=== PATIENT | male | born 1975 | race Caucasian/White ===

== ENCOUNTER 2019-07-07 05:26 | Emergency (ER) | payer OTHER, SELFPAY ==
--- NOTE | ~2019-07-07 | CT_ITS ---
EXAMINATION: CT abdomen pelvis wo con DATE: 07/07/2019 06:50 INDICATION: Left flank pain. Nausea and vomiting. TECHNIQUE: Computed tomography (CT) of the abdomen and pelvis was performed without intravenous contr ast. Automated exposure control and iterative reconstruction technique were employed. The dose-length product was 1684.29 mGy-cm. COMPARISON: None. FINDINGS: The visualized portions of the lung bases demonstrate a calcified right lower lobe nodule a nd calcified right hilar lymph nodes, consistent with old granulomatous disease. No pleural effusion. The heart size is normal. No pericardial effusion. There is diffuse hepatic steatosis. The gallbladd er, spleen, pancreas, adrenal glands, and right kidney are normal. There is mild left hydronephrosis and hydroureter. There is a 1 mm stone at left ureterovesicular junction. There is asymmetric edema i n left perinephric space. There is a small left inguinal hernia containing fat. There is diverticulos is of the colon without evidence of diverticulitis. There are no dilated loops of bowel. The appendix is normal. There are no pathologically enlarged lymph nodes. There is no free intraperitoneal fluid. There is mild thoracolumbar spondylosis. IMPRESSION: 1. 1 mm stone at left ureterovesicular junction with mild left hydronephrosis and hydroureter. Reviewed, dictated and finalized at location A. [facility]
[2019-07-07 05:29] VITALS: BP 169/101; PULSE 98; RESP 22; TEMP 36.4; O2SAT 100
--- NOTE | 2019-07-07 06:19 | ED.GENADULT ---
HPI - General Adult General Chief complaint: Abdominal Pain Stated complaint: L BACK PAIN Time Seen by Provider: 07/07/19 06:12 History of Present Illness HPI narrative: Patient is a 44 y/o male complaining left mid-back pain starting approximately 4 hours ago. He describes the pain as a pressure sensation and rates it as 7/10. He states that laying down worsens with pain. He endorses nausea, vomiting, dysuria and urgency. He denies any hematuria. He has never had similar pain before. Related Data Home Medications Medication Instructions Recorded Confirmed fexofenadine 180 mg tablet 180 mg PO .COMPLEX 07/03/19 multivitamin 1 tablet PO .COMPLEX 07/03/19 omeprazole 20 mg capsule,delayed 20 mg PO BID 07/03/19 release ranitidine HCl 150 mg tablet 150 mg PO BID tablet 07/03/19 Allergies Allergy/AdvReac Type Severity Reaction Status Date / Time No Known Allergies Allergy Unverified 07/20/11 13:40 Review of Systems Constitutional: Constitutional: Reports as per HPI, Denies chills, Denies fever(s), Denies headache(s) and Denies weakness Eyes: Eyes: Denies blurry vision ENT: Denies headache(s) and Denies neck pain Cardiovascular: Cardiovascular: Denies chest pain and Denies dyspnea Respiratory: Respiratory: Denies cough and Denies dyspnea Gastrointestinal: Gastrointestinal: Denies abdominal pain, Denies diarrhea, Reports nausea and Reports vomiting Genitourinary: Genitourinary: Denies hematuria and Reports dysuria Musculoskeletal: Musculoskeletal: Reports back pain and Denies neck pain Neurologic: Denies headache(s) and Denies weakness [facility] Past Medical History Medical History Hyperglycemia Hypertension Family History Family History Mother Patient's mother is in good health Father Patient's father is in good health Social History Social History Smoking status: Former smoker Smoking end date: 05/17/97 Gender identity (if verbalized by the patient): Male Exam Const: General: no acute distress and well developed Orientation/consciousness: oriented to person, oriented to place, oriented to time and patient oriented x3 HENMT: Head: normocephalic Ears: external ears normal General nose exam: Normal external nose present Eyes: General: appearance normal, both eyes and all related structures Conjunctivae: conjunctivae normal Neck: Neck: normal visual inspection and full ROM Chest: Chest palpation & inspection: normal inspection of the chest and no tenderness Resp: Effort & Inspection: normal respiratory effort Auscultation: clear to auscultation bilaterally Cardio: Rate: regular rate Rhythm: regular rhythm GI: GI Palp: No abdominal tenderness and Yes Soft to palpation Skin: General skin exam: normal color and turgor normal Neuro: General: oriented to person, oriented to place, oriented to time and patient oriented x3 Cognition (Neuro): normal cognition Extrem: General: normal to inspection, full ROM and no pedal edema Psych: Appearance: grossly normal Mental Status: mental status grossly normal Affect: normal affect Course Consultations Consultation #1: Discussed with Dr. Holly while he is in ED. He will evaluate the patient and recommends discharge. Date: 07/07/19 Time: 08:00 Vital Signs Vital signs: Vital Signs Temperature 36.4 C L 07/07/19 05:29 Pulse Rate 98 07/07/19 05:29 Respiratory Rate 22 H 07/07/19 05:29 Blood Pressure 169/101 H 07/07/19 05:29 Pulse Oximetry 100 07/07/19 05:29 Temperature 36.4 C L 07/07/19 05:29 Pulse Rate 98 07/07/19 05:29 Respiratory Rate 22 H 07/07/19 05:29 Blood Pressure 169/101 H 07/07/19 05:29 Pulse Oximetry 100 07/07/19 05:29 Medical Decision Making Vital Signs Vital Signs: Vital Signs Temperature 36.4 C L 07/07/19 05:29 Pulse Rate
[2019-07-07] MEDS: ONDANSETRON INJ 4 MG/2 ML VIAL IV PUSH (06:32)
[2019-07-07] MEDS: SODIUM CHLORIDE 0.9% IV 1,000 ML 999 ML IV CONT (06:32)
[2019-07-07] MEDS: KETOROLAC 30 MG/ML VIAL (*BKC) IV PUSH (06:33)
[2019-07-07 06:41] LABS: Basophils Percent Auto 0.4 % (0.2-1.2); Eosinophils Percent Auto 0.2 % (0-4.4); Hematocrit 44.8 % (42.0-52.0); Hemoglobin 15.6 g/dL (14.0-18.0); Immature Granulocyte Absolute 0.02 K/mm3 (0.00-0.031); Immature Granulocyte Percent A 0.2 % (0-0.5); Lymphocytes Absolute Auto 1.46 K/mm3 (0.9-3.2); Lymphocytes Percent Auto 14.4 % (18.3-44.2); Mean Corpuscular HGB Conc 34.8 g/dl (32-36); Mean Corpuscular Hemoglobin 30.8 pg (26-34); Mean Corpuscular Volume 88.4 fl (80-100); Mean Platelet Volume 11.8 fl (7.4-10.4); Monocytes Absolute Auto 0.5 K/mm3 (0.1-0.6); Monocytes Percent Auto 5.1 % (2.6-8.5); Neutrophils Absolute Auto 8.1 K/mm3 (1.3-6.7); Neutrophils Percent Auto 79.7 % (45.5-73.1); Platelet Count Result 207 k/mm3 (150-375); Red Blood Count 5.07 M/mm3 (4.6-6.20); Red Cell Distribution Width 11.8 % (11.5-14.5); White Blood Count 10.1 K/mm3 (4.5-10.0)
[2019-07-07 08:07] LABS: Add Urine Microscopic? NO; Appearance Urine Clear (Clear); Bilirubin Urine Negative (Negative); Blood Urine Negative (Negative); Color Urine Yellow (Yellow); Glucose Urine UA Negative (Negative); Ketones Urine Negative (Negative); Leukocyte Esterase Ur Negative LEU/UL (Negative); Mucus Urine Few /lpf; Nitrate Urine Negative (Negative); Protein Urine Negative (Negative); RBC Urine 0-2 /hpf (0-2); Squamous Epithelial Cell Urine Few /hpf (Few); Urobilinogen Urine Negative mg/dL (<2.0); WBC Urine 0-3 /hpf
--- NOTE | 2019-07-07 08:15 | WPDURCON ---
Assessment and Plan Assessment and plan (1) Calculus of distal left ureter: Code(s): N20.1 - Calculus of ureter Status: Acute Assessment and Plan: 1mm left distal stone - pian improved - pt to be discharged home with Flomax, pain medication, urinary strainer - follow up in one month with renal US to ensure passage % resolution of hydronephrosis Urology Consult Note HPI Date Seen: 07/07/19 Primary Care Provider: Nba Vizcarra MD Consult Narrative Narrative: Tanvir Colon is a 44 year old male with left flank pain. denies fever, chills, nausea or vomiting Review of Systems Review of Systems: All systems reviewed & are unremarkable except as noted in HPI and below PMFSH Past Medical History Medical History (Updated 07/07/19 @ 08:16 by Remedios Sandoval MD) Hyperglycemia Hypertension Family History Family History (Updated 06/29/17 @ 10:33 by DOCTOR UNKNOWN) Mother Patient's mother is in good health Father Patient's father is in good health Social History Social History Smoking status: Former smoker Smoking end date: 05/17/97 Gender identity (if verbalized by the patient): Male Meds Home Medications and Allergies Home Medications Medication Instructions Recorded Confirmed Type montelukast 10 mg tablet 10 mg PO .Evening #90 tablet 03/21/19 Rx fexofenadine 180 mg tablet 180 mg PO .COMPLEX 07/03/19 History lisinopril 10 mg tablet See Rx Instructions .ROUTE 07/03/19 Rx .COMPLEX #90 tablet multivitamin 1 tablet PO .COMPLEX 07/03/19 History omeprazole 20 mg capsule,delayed 20 mg PO BID 07/03/19 History release ranitidine HCl 150 mg tablet 150 mg PO BID tablet 07/03/19 History hydrocodone-acetaminophen [[place]] 1 tablet PO Q6H PRN #20 tablet 07/07/19 Rx tamsulosin [Flomax] 0.4 mg PO DAILY #10 cap 07/07/19 Rx Allergies Allergy/AdvReac Type Severity Reaction Status Date / Time No Known Allergies Allergy Unverified 07/20/11 13:40 Vital Signs Vital Signs - 24 hr 07/07/19 05:29 Temperature 36.4 C L Pulse Rate 98 Respiratory Rate 22 H Blood Pressure 169/101 H Pulse Oximetry 100 Exam Const: General: comfortable Eyes: General: appearance normal, both eyes and all related structures Resp: Effort & Inspection: normal respiratory effort Cardio: Rate: regular rate GI: Other: soft Results Labs CBC & Chem 7: 07/07/19 06:35 07/07/19 06:35 Labs: Short CBC 07/07/19 Range/Units 06:35 WBC 10.1 H (4.5-10.0) K/mm3 Hgb 15.6 (14.0-18.0) g/dL Hct 44.8 (42.0-52.0) % Plt Count 207 (150-375) k/mm3 Urine 07/07/19 Range/Units 07:53 Urine Color Yellow (Yellow) Urine Appearance Clear (Clear) Urine pH 5.0 (5.0-9.0) Ur Specific [place] 1.030 (1.001-1.035) Urine Protein Negative (Negative) mg/dL Urine Glucose (UA) Negative (Negative) mg/dL
[2019-07-07 08:16] LABS: Blood Urea Nitrogen 17 mg/dL (9-20); Calcium 9.5 mg/dL (8.4-10.2); Carbon Dioxide 27 mmol/L (22-30); Chloride 100 mmol/L (98-107); Estimated CRCL calculation 102 ml/min; Estimated Glomerular Filt Rate > 60; Glucose 120 mg/dL (75-110); Sodium 138 mmol/L (137-145)
[2019-07-07 08:50] VITALS: BP 150/90; PULSE 92; RESP 19; O2SAT 97
--- NOTE | 2019-07-14 20:03 | PC.NURSE ---
LATE ENTRY Patient's liter of NS finished infusing at 0715 on 07/07/2019.
== END 2019-07-07 08:52 | disposition home or self-care (01) ==
PROVIDERS: Emergency Provider Emergency Medicine; PCP Emergency Medicine
DX: N13.2 Hydronephrosis with renal and ureteral calculous obstruction (principal); I10 Essential (primary) hypertension; Z87.891 Personal history of nicotine dependence
CPT/HCPCS: 36415; 74176; 80048; 81003; 85025; 96361; 96374; 96375; 99284; J1885; J2405; J7030

== ENCOUNTER 2022-08-20 13:42 | Emergency (ER) | payer OTHER, SELFPAY ==
[2022-08-20 14:02] VITALS: BP 144/85; PULSE 103; RESP 22; TEMP 36.6; O2SAT 100
--- NOTE | 2022-08-20 14:19 | ED.URI ---
HPI - URI/Sore Throat General Chief Complaint: Upper Respiratory Infection Stated Complaint: sorethroat,cough,congestion Time Seen by Provider: 08/20/22 14:19 Source: patient Mode of arrival: ambulatory Limitations: no limitations History of Present Illness HPI Narrative: Patient is a 47-year-old male that presents with 3 weeks of cough and sore throat. Reports son was diagnosed with strep 10 days ago. Patient reports cough is worse at night. Has tried Mucinex, Sudafed, Benadryl, Delsym with mild to no relief. States he was on amoxicillin but unsure when. Denies any fever, congestion, shortness of breath. Related Data Home Medications Medication Instructions Recorded Confirmed multivitamin 1 tablet PO .COMPLEX 07/03/19 08/20/22 omeprazole 20 mg capsule,delayed 20 mg PO BID 07/03/19 08/20/22 release omega-3 fatty acids 500 mg capsule 500 mg PO DAILY 11/28/19 08/20/22 Allergies Allergy/AdvReac Type Severity Reaction Status Date / Time Sulfa (Sulfonamide Allergy Unknown Unknown Verified 08/20/22 14:10 Antibiotics) Review of Systems Review of Systems: All systems reviewed & are unremarkable except as noted in HPI and below Constitutional: Constitutional: Denies body ache(s), Denies fever(s), Denies headache(s), Denies malaise and Denies weakness Eyes: Eyes: Denies loss of vision ENT: Denies otalgia, Denies headache(s), Denies nasal congestion, Denies sinus pain and Reports sore throat Cardiovascular: Cardiovascular: Denies chest pain, Denies irregular heart rhythm and Denies dyspnea Respiratory: Respiratory: Reports cough and Denies dyspnea Gastrointestinal: Gastrointestinal: Denies abdominal pain, Denies melena, Denies hematochezia, Denies diarrhea, Denies nausea and Denies vomiting Musculoskeletal: Musculoskeletal: Denies back pain, Denies myalgias and Denies arthralgias Integumentary/Breasts: Skin/Breast: Denies pruritus and Denies rash Neurologic: Denies headache(s), Denies loss of vision and Denies weakness Psychiatric: Psychiatric: Reports no additional psychiatric complaints PMFSH Past Medical History Medical History Chronic frontal sinusitis Hyperglycemia Hypertension Metabolic syndrome Mixed hyperlipidemia Vasectomy evaluation Vitamin D deficiency Family History Family History Mother Patient's mother is in good health Father Patient's father is in good health Social History Social History Smoking status: Former smoker Smoking end date: 05/17/97 Gender identity (if verbalized by the patient): Male Comments At time of signature, agree with nursing past medical, surgical, social and family history. There is no relevant family history pertinent to the presenting complaint. Exam Const: General: cooperative, healthy appearing, comfortable, no acute distress and well nourished Nutritional Appearance: well nourished Orientation/consciousness: patient oriented x3 Limitations: no limitations HENMT: Head: normal to inspection, normocephalic and atraumatic Ears: external ears normal, TM normal on the right and TM abnormal obstructed by cerumen on the left Face/Nose/Sinus: Normal external nose present, normal facial exam, sinuses nontender and face symmetric Face and sinus: normal facial exam, sinuses nontender and face symmetric Mouth: Yes Normal oral and palatal mucosa present, Yes lip normal and Yes moist mucous membranes Teeth and gingiva: dentition normal Throat: posterior oropharynx normal, tonsils normal and uvula midline Eyes: General: appearance normal, both eyes and all related structures Alignment and Position: alignment normal and position normal Periorbital: periorbital findings normal Eyelids: eyelids normal Pupils: Equal, round and reactive pupils present Neck: Neck: normal visual inspection, ful
== END 2022-08-20 14:46 | disposition home or self-care (01) ==
PROVIDERS: Emergency Provider Nurse Practitioner Family; PCP Emergency Medicine
DX: J32.9 Chronic sinusitis, unspecified (principal); J40 Bronchitis, not specified as acute or chronic; Z87.891 Personal history of nicotine dependence; I10 Essential (primary) hypertension; E78.2 Mixed hyperlipidemia; E88.81 Metabolic syndrome and other insulin resistance
CPT/HCPCS: 87081; 87880; 99213; G0463

== ENCOUNTER 2022-11-21 19:57 | Observation (INO) | payer OTHER, SELFPAY ==
--- NOTE | ~2022-11-21 | XR_ITS ---
EXAMINATION: XR chest 1V portable Exam Date/Time: 11/21/2022 21:20 CDT HISTORY: chest pain Comparison: None. RESULT: Lines, tubes, and devices: None. Lungs and pleura: Calcified left midlung hamartoma. No focal consolidation, pleural effusion, or pne umothorax. Cardiomediastinal silhouette: Unremarkable. Other: No acute osseous or upper abdominal finding. IMPRESSION: No acute cardiopulmonary process. Reviewed, dictated and finalized at location K.
--- NOTE | 2022-11-21 19:59 | ECG_ITS ---
Measurements Intervals [place] Rate: 93 P: 11 [place]: 132 QRS: 34 QRSD: 90 T: 31 QT: 346 QTc: 432 Interpretive Statements SINUS RHYTHM NORMAL ECG NO PREVIOUS ECG AVAILABLE FOR COMPARISON Electronically Signed On 11-22-2022 7:26:20 CDT by Azam Meyers D.O.
[2022-11-21 20:07] VITALS: BP 166/81; PULSE 98; RESP 18; TEMP 36.9; O2SAT 99
[2022-11-21 20:19] VITALS: BP 163/94; PULSE 93; RESP 18; O2SAT 95
[2022-11-21 20:31] VITALS: BP 174/106; PULSE 94; RESP 25
[2022-11-21 20:42] VITALS: O2SAT 96
[2022-11-21 20:46] VITALS: BP 167/90; PULSE 90; RESP 13; RESP 16; O2SAT 96
[2022-11-21] MEDS: ASPIRIN 81 MG CHEWABLE TABLET 324 MG PO (20:57)
[2022-11-21 21:02] LABS: Basophils Percent Auto 0.5 % (0.2-1.2); Eosinophils Absolute Auto 0.1 K/mm3 (0-0.3); Eosinophils Percent Auto 1.3 % (0-4.4); Hematocrit 41.8 % (42.0-52.0); Hemoglobin 14.4 g/dL (14.0-18.0); Immature Granulocyte Absolute 0.02 K/mm3 (0.00-0.031); Immature Granulocyte Percent A 0.2 % (0-0.5); Lymphocytes Absolute Auto 2.83 K/mm3 (0.9-3.2); Lymphocytes Percent Auto 33.3 % (18.3-44.2); Mean Corpuscular HGB Conc 34.4 g/dl (32-36); Mean Corpuscular Hemoglobin 30.5 pg (26-34); Mean Corpuscular Volume 88.6 fl (80-100); Mean Platelet Volume 11.5 fl (7.4-10.4); Monocytes Absolute Auto 0.7 K/mm3 (0.1-0.6); Monocytes Percent Auto 8.2 % (2.6-8.5); Neutrophils Absolute Auto 4.8 K/mm3 (1.3-6.7); Neutrophils Percent Auto 56.5 % (45.5-73.1); Platelet Count Result 236 k/mm3 (150-375); Red Blood Count 4.72 M/mm3 (4.6-6.20); Red Cell Distribution Width 12.5 % (11.5-14.5); White Blood Count 8.5 K/mm3 (4.5-10.0)
[2022-11-21 21:10] LABS: Lipase 154 U/L (23-300)
[2022-11-21 21:14] LABS: Alanine Aminotransferase 55 U/L (6-50); Albumin Level 4.4 g/dL (3.5-5.1); Alkaline Phosphatase 49 U/L (38-126); Anion Gap 8 mmol/L (8-16); Aspartate Amino Transferase 42 U/L (17-59); Bilirubin,Total 0.4 mg/dL (0.2-1.3); Blood Urea Nitrogen 18 mg/dL (9-20); Calcium 10.2 mg/dL (8.4-10.2); Carbon Dioxide 26 mmol/L (22-30); Chloride 100 mmol/L (98-107); Estimated CRCL calculation 130 ml/min; Estimated Glomerular Filt Rate > 60; Glucose 106 mg/dL (65-110); Magnesium 1.8 mg/dL (1.6-2.3); Potassium 3.7 mmol/L (3.4-5.0); Sodium 134 mmol/L (137-145)
[2022-11-21 21:16] VITALS: BP 163/87; PULSE 91; O2SAT 94
[2022-11-21 21:19] LABS: Partial Thromboplastin Time 26.6 SECONDS (22.3-36.8); Prothrombin Time 13.1 Seconds (11.1-14.7)
[2022-11-21 21:20] LABS: NT Pro B Type Natriuretic Pept < 20 pg/mL (19.9-100)
[2022-11-21 21:26] LABS: Troponin I < 0.012 ng/mL (0.000-0.034)
[2022-11-21 22:01] LABS: Appearance Urine Clear (Clear); Bilirubin Urine Negative (Negative); Blood Urine Negative (Negative); Color Urine Yellow (Yellow); Glucose Urine UA Negative (Negative); Ketones Urine Negative (Negative); Leukocyte Esterase Ur Negative LEU/UL (Negative); Nitrate Urine Negative (Negative); Protein Urine Negative (Negative); Urobilinogen Urine 0.2 mg/dL (<2.0); pH Urine 5.5 (5.0-9.0)
[2022-11-21 22:29] LABS: Add Urine Microscopic? NO
--- NOTE | 2022-11-21 23:37 | ED.GENADULT ---
HPI - General Adult General Chief complaint: Chest Pain Stated complaint: chest pain Time Seen by Provider: 11/21/22 20:21 History of Present Illness HPI narrative: Patient 47-year-old gentleman who presents the emergency department with chief complaint of chest pain and palpitations. Patient reports that yesterday he started having some episodes where he felt like his heart was racing he states that his Apple Watch did read that his heart rate was high during that time. Patient also reported he had an episode of chest discomfort when this happened patient reports no prior history of cardiac disease and reports he had another episode today and decided to come to the emergency department patient reports the symptoms are currently resolved Related Data Home Medications Medication Instructions Recorded Confirmed multivitamin 1 tablet PO BID 07/03/19 11/22/22 omeprazole 20 mg capsule,delayed 20 mg PO BID 07/03/19 11/22/22 release omega-3 fatty acids 500 mg capsule 500 mg PO QPM 11/28/19 11/22/22 fenofibrate nanocrystallized 145 145 mg PO QPM 11/22/22 11/22/22 mg tablet fluticasone propionate 50 1 spray intranasal BID PRN 11/22/22 11/22/22 mcg/actuation nasal allergies spray,suspension (Flonase Allergy Relief) lisinopril 40 mg tablet 40 mg PO DAILY 11/22/22 11/22/22 niacin 500 mg tablet,extended 500 mg PO QAM 11/22/22 11/22/22 release Allergies Allergy/AdvReac Type Severity Reaction Status Date / Time Sulfa (Sulfonamide Allergy Unknown Unknown Verified 10/19/22 17:52 Antibiotics) Review of Systems Review of Systems: A 10 system review of systems was completed on the patient and is negative except for what is stated in the HPI. Nursing and ancillary documentation was reviewed. [facility] Past Medical History Medical History Chronic frontal sinusitis Hyperglycemia Hypertension Metabolic syndrome Mixed hyperlipidemia Ureterolithiasis Vasectomy evaluation Vitamin D deficiency Family History Family History Mother Patient's mother is in good health Father Patient's father is in good health Social History Social History Smoking packs per day: 1.5 Smoking cigarettes per day: 30.0 Years smoked: 7 Smoking pack-years: 10.50 Smoking status: Former smoker Tobacco type: cigarettes Smoking end date: 05/17/97 Alcohol intake: current Substance use: never Other substance usage details: social alcohol use Lack of Transportation: No Lack of Food: Never True Current Housing: I Have Housing Concerned About Future Housing: No Difficulty Paying Gas/Electric Bills: No Difficulty Paying for Meds: No Currently Unemployed: No Education: Master's Degree or Higher Difficulty w/ Childcare or Family Care: No Gender identity (if verbalized by the patient): Male Spiritual care concerns: No Exam Narrative: GENERAL: Well-appearing, well-nourished, and in no acute distress. HEAD: Normocephalic, atraumatic. EYES: PERRLA and EOMI. ENT: Nares clear, no rhinorrhea or epistaxis. Mucous membranes moist. NECK: Supple. CHEST: Clear to auscultation. No respiratory distress. HEART: Regular rate and rhythm. No murmur heard. Normal peripheral pulses. ABDOMEN: Soft, nontender, nondistended, normal active bowel sounds. EXTREMITIES: Normal range of motion. No edema. SKIN: Warm, dry, no rash. NEURO: No focal deficits. Alert and oriented x3. PSYCH: Normal mood and affect. Course Vital Signs Vital signs: Vital Signs Temperature 36.9 C 11/21/22 20:07 Pulse Rate 98 11/21/22 20:07 Respiratory Rate 18 11/21/22 20:07 Blood Pressure 166/81 H 11/21/22 20:07 Pulse Oximetry 99 11/21/22 20:07 Oxygen Delivery Room Air 11/21/22 20:07 Temperature 36.6 C 11/22/22 02:41 Pulse Rate 106 H 07/0
[2022-11-22] VITALS (19 sets, daily range): BP systolic 108–145; BP diastolic 58–84; PULSE 74–106; RESP 15–22; TEMP 36.6–36.8; O2SAT 95–99; BMI 42.1
[2022-11-22] MEDS: NITROGLYCERIN SL 0.4 MG TABLET SUBLINGUAL (01:00)
[2022-11-22] MEDS: HEPARIN SODIUM 5,000 UNITS/ML VIAL 4000 UNITS IV PUSH (01:04)
--- NOTE | 2022-11-22 01:04 | ECG_ITS ---
Measurements Intervals [place] Rate: 75 P: 48 [place]: 156 QRS: 29 QRSD: 94 T: 30 QT: 390 QTc: 436 Interpretive Statements SINUS RHYTHM NORMAL ECG COMPARED TO ECG 11/21/2022 20:03:05 NO SIGNIFICANT CHANGES Electronically Signed On 11-22-2022 7:33:59 CDT by Azam Meyers D.O.
[2022-11-22] MEDS: HEPARIN SOD/D5W 100 UNITS/ML 25,000 UNITS/250 ML BAG 10 UNITS IV CONT (01:06)
[2022-11-22] MEDS: METOPROLOL TARTRATE INJ 5 MG/5 ML VIAL IV PUSH (01:10)
--- NOTE | 2022-11-22 02:34 | ADMGEN ---
This patient, Tanvir Colon, was admitted to IMU Room 212-01. Patient/family oriented to hospital policies and general routines including ID bracelet, bed and alarms, visiting hours, pain management, procedures, bathroom and other care routines, personal items, smoking policy, room service/diet, and visiting hours. Information on how to activate the Rapid Response Team has been discussed. Patient/Family are encouraged to report perceived risks to care and to ask questions if they do not understand what they are told or what they should do.
--- NOTE | 2022-11-22 02:39 | PM.IMHP ---
H&P: HPI History of Present Illness Date/Time: 11/22/22 02:39 Chief Complaint: Chest pain Narrative: 47-year-old male with past medical history of triglyceride, essential hypertension, GERD and morbid obesity who presented to the ER with chest pain. He reports that he was at a concert on Wednesday night he just did not feel well for most the day. He states that he was not acutely sick he just did not feel right. At around 09:30 or 10:00 o'clock that night he started to have some chest pressure. His heart rate on his Apple watch alarmed at 140 beats per minute. He could feel his heart racing and he was having some sweating. He did an EKG with his Apple watch but on my review of the data hip looked mostly like artifact. He went and sat down in a cool area and his symptoms resolved after 15-20 minutes. He denied any nausea or vomiting lightheadedness, cough, congestion or any preceding symptoms. He denied having history of leg swelling or calf pain. Then the following day he was driving when he began having some chest pressure. He did have some elevation is heart rate up to the low 100s. He did another EKG on his Apple watch in demonstrated sinus tachycardia on my review. He decided come into the ER for evaluation. He reports that he was still having some chest pressure even when he arrived to the ER. His chest pressure was relieved with nitroglycerin. In the ER his initial troponin was negative. His repeat troponin was reportedly positive at 0.58. After his 2nd troponin came back he was admitted for a non STEMI. He was started on nitro paste and given full-dose aspirin. Cardiology was consulted. However the patient's 3rd troponin was negative. Subsequently the will computer laboratory technician re ran all 3 of the patient's specimens on both analyzer is. All the specimens returned as negative. The patient's pain did not radiate and had no specific eliciting or relieving factors. Patient does have history of GERD and takes omeprazole. The pain did not feel like his usual GERD. He does have a history of dyslipidemia and hypertriglyceridemia. He was on Zocor in the past Review of Systems Review of Systems: 12 systems were reviewed with pertinent positives and negatives per HPI. Except as documented in the HPI, all other systems were reviewed and are negative. [facility] Past Medical History Medical History (Updated 11/22/22 @ 03:01 by Heavenly German DO) Chronic frontal sinusitis Hyperglycemia Hypertension Metabolic syndrome Mixed hyperlipidemia Ureterolithiasis Vasectomy evaluation Vitamin D deficiency Surgical History Surgical History (Updated 11/22/22 @ 07:32 by Heavenly German DO) No history of previous surgery Family History Family History Mother Patient's mother is in good health Father Patient's father is in good health Social History Social History (Updated 11/22/22 @ 07:38 by Heavelny German DO) Social History: Code status: Full code Surrogate decision maker: Smoking packs per day: 1.5 Smoking cigarettes per day: 30.0 Years smoked: 7 Smoking pack-years: 10.50 Smoking status: Former smoker Tobacco type: cigarettes Smoking end date: 05/17/97 Alcohol intake: current Alcohol use details: He drinks alcohol about once a month and in moderation. Substance use: never Other substance usage details: social alcohol use Lack of Transportation: No Lack of Food: Never True Current Housing: I Have Housing Concerned About Future Housing: No Difficulty Paying Gas/Electric Bills: No Difficulty Paying for Meds: No Currently Unemployed: No Education: Master's Degree or Higher Difficulty w/ Childcare or Family Care: No Additional living arrangements comments: He lives at home with his of 7 years and his 10-year-old son. 2 foster sons that they have had for the last 18 months. He also has 2 stepdaughters that her in
[2022-11-22 03:44] LABS: Troponin I < 0.012 ng/mL (0.000-0.034)
[2022-11-22 06:37] LABS: Basophils Percent Auto 0.4 % (0.2-1.2); Eosinophils Absolute Auto 0.2 K/mm3 (0-0.3); Eosinophils Percent Auto 2.4 % (0-4.4); Hemoglobin 13.8 g/dL (14.0-18.0); Immature Granulocyte Absolute 0.02 K/mm3 (0.00-0.031); Immature Granulocyte Percent A 0.3 % (0-0.5); Lymphocytes Percent Auto 42.6 % (18.3-44.2); Mean Corpuscular HGB Conc 33.7 g/dl (32-36); Mean Corpuscular Hemoglobin 30.4 pg (26-34); Mean Corpuscular Volume 90.3 fl (80-100); Mean Platelet Volume 11.4 fl (7.4-10.4); Monocytes Absolute Auto 0.6 K/mm3 (0.1-0.6); Neutrophils Absolute Auto 3.1 K/mm3 (1.3-6.7); Neutrophils Percent Auto 45.3 % (45.5-73.1); Platelet Count Result 210 k/mm3 (150-375); Red Blood Count 4.54 M/mm3 (4.6-6.20); Red Cell Distribution Width 12.8 % (11.5-14.5); White Blood Count 6.8 K/mm3 (4.5-10.0)
[2022-11-22 06:48] LABS: Prothrombin Time 13.3 Seconds (11.1-14.7)
[2022-11-22 06:49] LABS: Partial Thromboplastin Time 35.9 SECONDS (22.3-36.8)
[2022-11-22 06:55] LABS: Troponin I < 0.012 ng/mL (0.000-0.034)
[2022-11-22 07:30] LABS: Troponin I 0.017 ng/mL (0.000-0.034)
--- NOTE | 2022-11-22 07:42 | PC.NURSE ---
0312-6 hour troponin reported as negative with previous 3 hour troponin positive, reported at 0.539. Dr German made aware of troponin discrepancy. 0320-Dr. German at bedside to speak to the patient. A 4th troponin was ordered for the AM. Lab notified of troponin discrepancies and asked to rerun all three previous specimens of blood. After rerunning all three previous specimens, lab states that all three came back as negative results. Lab states that they will rerun all 3 specimens again on the other lab analyzer to be certain the results are correct and notify us of the results. 0640-Lab called stating that the other analyzer also reported all three specimens as negative results. electromechanical assembly technician states that she will issue a corrected report from the previous troponin results. Dr. German made aware of updated lab results. Awaiting 4th troponin results.
--- NOTE | 2022-11-22 08:13 | PM.IMPN ---
Progress Note: A&P Assessment and Plan (1) Atypical chest pain: Code(s): R07.89 - Other chest pain Status: Acute (2) Palpitations: Code(s): R00.2 - Palpitations Status: Acute (3) Mixed hyperlipidemia: Code(s): E78.2 - Mixed hyperlipidemia Status: Acute (4) Hypertension: Qualifiers: Hypertension type: primary hypertension Qualified Code(s): I10 - Essential (primary) hypertension Code(s): I10 - Essential (primary) hypertension Status: Acute (5) Morbid obesity with BMI of 40.0-44.9, adult: Code(s): E66.01 - Morbid (severe) obesity due to excess calories; Z68.41 - Body mass index [BMI] 40.0-44.9, adult Status: Acute Plan Chest pain Need to rule out ACS Troponins negative ECG shows sinus rhythm nonspecific T-wave changes Heparin drip and nitro paste was discontinued per 19 Telemetry monitoring Follow-up serial troponin Consult manager cardiac cath for radiation treatment Hyperlipidemia History of rhabdomyolysis due to Zocor Four lipid panel Continue fenofibrate and niacin Hypertension Uncontrolled hypertension new continue metoprolol 25 mg daily p.o., lisinopril and hydrochlorothiazide p.o. Of this med medication for better blood pressure control Morbid obesity Have staff change, ice or sinus Need outpatient sleep study Subjective Date/time seen: 11/22/22 08:13 Interval history: Patient feels better, denies chest pain shortness of breath. Troponin negative, EKG shows sinus rhythm no specific ST-T changes Exam Narrative: GENERAL: Pleasant, in no acute distress. Well-nourished. Obesity - EYES: EOMI. Anicteric. - HENT: Moist mucous membranes. - LUNGS: Clear to auscultation bilaterally, no wheezing, rhonchi, or rales. - CARDIOVASCULAR: Regular rate and rhythm. No murmur. No JVD. - ABDOMEN: Soft, non-tender and non-distended. No palpable masses. - EXTREMITIES: No edema. Peripheral pulses 2+. Non-tender. - NEUROLOGIC: No focal neurological deficits. CN II-XII grossly intact. - PSYCHIATRIC: Awake, Alert and oriented x 3. Appropriate mood and affect. - SKIN: No rashes or lesions. Warm. - LYMPH: No cervical lymphadenopathy. Objective Data Vital Signs Vital Signs: Vital Signs - 24 hr 11/21/22 20:07 11/21/22 20:42 11/21/22 20:46 Temperature 98.4 F Pulse Rate 98 90 Respiratory Rate 18 16 Blood Pressure 166/81 H 167/90 H Pulse Oximetry 99 96 96 Oxygen Delivery Room Air Room Air 11/21/22 20:19 11/21/22 20:31 11/21/22 20:46 Temperature Pulse Rate 93 94 90 Respiratory Rate 18 25 H 13 Blood Pressure 163/94 H 174/106 H 167/90 H Pulse Oximetry 95 Oxygen Delivery 11/21/22 21:16 11/22/22 01:00 11/22/22 01:10 Temperature Pulse Rate 91 78 93 Respiratory Rate 22 H Blood Pressure 163/87 H 145/74 H Pulse Oximetry 94 97 Oxygen Delivery 11/22/22 01:34 11/22/22 00:59 11/22/22 01:00 Temperature Pulse Rate 83 80 83 Respiratory Rate 22 H Blood Pressure Pulse Oximetry Oxygen Delivery 11/22/22 01:01 11/22/22 01:15 11/22/22 01:16 Temperature Pulse Rate 80 78 80 Respiratory Rate 22 H 15 16 Blood Pressure 145/74 H 131/74 Pulse Oximetry Oxygen Delivery 11/22/22 01:32 11/22/22 01:45 11/22/22 01:46 Temperature Pulse Rate 77 74 76 Respiratory Rate 17 19 21 H Blood Pressure 128/76 Pulse Oximetry Oxygen Delivery 11/22/22 02:41 11/22/22 02:45 11/22/22 03:14 Temperature 97.8 F Pulse Rate 82 82 106 H Respiratory Rate 22 H 22 H Blood Pressure 135/84 Pulse Oximetry 99 99 Oxygen Delivery Room Air 11/22/22 04:00 11/22/22 04:00 11/22/22 06:00 Temperature Pulse Rate 87 87 75 Respiratory Rate 20 Blood Pressure Pulse Oximetry 99 Oxygen Delivery Room Air Intake/Output Intake/Output: Intake & Output 11/19/22 11/20/22 11/21/22 11/22/22 23:59 23:59 23:59 23:59 Intake Total 0 Output Total 360 Balance
--- NOTE | 2022-11-22 08:26 | PM.CNCAR ---
Assessment and Plan Assessment and plan (1) Atypical chest pain: Code(s): R07.89 - Other chest pain Status: Acute Assessment and Plan: Patient with 2 episodes of chest pressure associated with tachycardia and diaphoresis. Relieved with nitroglycerin in the emergency room, but the patient states it took about 30 minutes so less likely to be cardiac chest discomfort. EKGs have not shown any ischemic changes. As mention in Dr. German's note, a 2nd troponin was elevated 0.5 but when re-run all troponins are normal so that 2nd troponin appears to be erroneous. --repeat EKG --if unremarkable, okay for discharge --outpatient stress test to evaluate for significant CAD --patient aware that a normal stress test does not exclude coronary disease and continuing primary prevention is recommended --call or go come back to the emergency room refer current problems. (2) Palpitations: Code(s): R00.2 - Palpitations Status: Acute Assessment and Plan: Two episodes of palpitations; patient Apple watch that his heart rate was greater than 140 on 1 occasion. Could be sinus tachycardia related to heat, and having 2 beers, but also patient could be experiencing SVT or other arrhythmias. --outpatient 2 week monitor (3) Mixed hyperlipidemia: Code(s): E78.2 - Mixed hyperlipidemia Status: Acute Assessment and Plan: Triglycerides have not been up to 600 in the past, now down to 200 taking fenofibrate, niacin and fish oil. Still has elevated cholesterol which is more risk factor for CAD. Continue primary prevention. (4) Statin-induced myositis: Code(s): M60.9 - Myositis, unspecified; T46.6X5A - Adverse effect of antihyperlipidemic and antiarteriosclerotic drugs, initial encounter Status: Acute Assessment and Plan: Had significantly elevated CPKs in the past while on simvastatin. Was not on fenofibrate at that time, which could have contributed to a drug drug interaction. If cholesterol-lowering tx is needed in the future, he still may be a candidate for statin therapy with fluvastatin, pravastatin or pitivastatin, which have a lower risk, if carefully monitored, or use nonstatin lipid-lowering agents. History of Present Illness History of Present Illness Consult date/time: 11/22/22 08:26 Reason For Visit: Chest Pain/NSTEMI Narrative: Tanvir kennedy is a 47-year-old male whom we were asked to see at the request of Dr. Connelly for advice and opinion regarding his chest pain and palpitations, in consultation. He has a history of hypertension, metabolic syndrome, mixed hyperlipidemia. He has a history of elevated CPK and myalgias secondary to Zocor around 2008. Mr. Colon has no history of heart disease. On fall at a concert at [employer] with his family he developed chest discomfort and pressure and his Apple watch told him his heart rate was greater than 140. He was sweaty any good feels heart racing. He went to sat down in an air-conditioned environment and after 20 minutes this resolved. Wednesday night he developed chest pressure again with a feeling of fast heartbeats, not as intense, felt like a brick on his chest which lasted about 2 hours until he came to the emergency room. He was given nitroglycerin which helped resolve the chest pain within 30 minutes. No dizziness. No energy drinks or excessive caffeine use. No history of exertional chest discomfort or prior palpitations. No family history of heart problems. No further problems overnight and telemetry shows sinus rhythm. Review of Systems Constitutional: Constitutional: Denies fever(s) Eyes: Eyes: Reports no additional eye complaints ENT: Denies epistaxis Cardiovascular: Cardiovascular: Reports chest pain, Reports diaphoresis, Denies pedal edema, Denies lightheadedness, Reports palpitations and Denies dyspnea Respiratory: Respiratory: Denies chest congestion and Denies dyspnea Gastrointestina
--- NOTE | 2022-11-22 08:57 | ECG_ITS ---
Measurements Intervals [place] Rate: 73 P: 42 RI: 153 QRS: 32 QRSD: 92 T: 29 QT: 389 QTc: 429 Interpretive Statements SINUS RHYTHM NORMAL ECG COMPARED TO ECG 11/22/2022 01:51:01 NO SIGNIFICANT CHANGES Electronically Signed On 11-22-2022 18:30:22 CDT by Azam Meyers D.O.
[2022-11-22] MEDS: hydroCHLOROthiazide 25 MG TABLET PO (09:53)
[2022-11-22] MEDS: lisinopriL 20 MG TABLET 40 MG PO (09:53)
[2022-11-22] MEDS: ASPIRIN 81 MG ENTERIC TABLET PO (09:53)
[2022-11-22] MEDS: METOPROLOL SUCCINATE EXT REL 25 MG TABCR PO (09:54)
[2022-11-22] MEDS: NIACIN SA 500 MG TABLET PO (09:59)
[2022-11-22] MEDS: PANTOPRAZOLE 40 MG TABLET PO (09:59)
[2022-11-22] MEDS: MULTIVITAMINS THERAPEUTIC TAB (*BKC) 1 TABLET PO (09:59)
--- NOTE | 2022-11-22 11:47 | PM.DS ---
DS: Summary Time Spent with Patient Time attestation: Total time spent providing and/or coordinating discharge services: DS: Data Data Completed and Pending Labs on day of discharge: Labs from last 24 hours 11/22/22 11/22/22 11/21/22 06:32 03:12 23:26 WBC 6.8 RBC 4.54 L Hgb 13.8 L Hct 41.0 L MCV 90.3 MCH 30.4 MCHC 33.7 RDW 12.8 Plt Count 210 MPV 11.4 H Immature Gran % (Auto) 0.3 Neut % (Auto) 45.3 L Lymph % (Auto) 42.6 [place] % (Auto) 9.0 H Eos % (Auto) 2.4 Baso % (Auto) 0.4 Lymph # (Auto) 2.90 [place] # (Auto) 0.6 Eos # (Auto) 0.2 Baso # (Auto) 0.0 Abs Immat Gran (auto) 0.02 Absolute Neuts (auto) 3.1 Absolute Nucleated RBC 0.0 Nucleated RBC % 0.0 PT 13.3 INR 1.0 APTT 35.9 Sodium Potassium Chloride Carbon Dioxide Anion Gap BUN Creatinine Estim Creat Clear Calc Estimated GFR Glucose Calcium Magnesium Total Bilirubin AST ALT Alkaline Phosphatase Troponin I 0.017 D < 0.012 < 0.012 NT-Pro-B Natriuret Pep Total Protein Albumin Lipase TSH 3.140 Urine Color Urine Appearance Urine pH Ur Specific [place] Urine Protein Urine Glucose (UA) Urine Ketones Ur Blood (Man) Urine Nitrate Urine Bilirubin Urine Urobilinogen Leukocyte Esterase Rfl 11/21/22 20:54 WBC 8.5 RBC 4.72 Hgb 14.4 Hct 41.8 L MCV 88.6 MCH 30.5 MCHC 34.4 RDW 12.5 Plt Count 236 MPV 11.5 H Immature Gran % (Auto) 0.2 Neut % (Auto) 56.5 Lymph % (Auto) 33.3 [place] % (Auto) 8.2 Eos % (Auto) 1.3 Baso % (Auto) 0.5 Lymph # (Auto) 2.83 [place] # (Auto) 0.7 H Eos # (Auto) 0.1 Baso # (Auto) 0.0 Abs Immat Gran (auto) 0.02 Absolute Neuts (auto) 4.8 Absolute Nucleated RBC 0.0 Nucleated RBC % 0.0 PT 13.1 INR 1.0 APTT 26.6 Sodium 134 L Potassium 3.7 Chloride 100 Carbon Dioxide 26 Anion Gap 8 BUN 18 Creatinine 1.00 Estim Creat Clear Calc 130 Estimated GFR > 60 Glucose 106 Calcium 10.2 Magnesium 1.8 Total Bilirubin 0.4 AST 42 ALT 55 H Alkaline Phosphatase 49 Troponin I < 0.012 NT-Pro-B Natriuret Pep < 20 Total Protein 8.0 Albumin 4.4 Lipase 154 TSH Urine Color Yellow Urine Appearance Clear Urine pH 5.5 Ur Specific [place] 1.020 Urine Protein Negative Urine Glucose (UA) Negative Urine Ketones Negative Ur Blood (Man) Negative Urine Nitrate Negative Urine Bilirubin Negative Urine Urobilinogen 0.2 Leukocyte Esterase Rfl Negative Discharge Plan Discharge Consulting providers: Erica Costello Discharge Medications: No Action (DME) Aerochamber MV Spacer See Rx Instructions .Route Qty: 1 0RF Rx Instructions: As directed albuterol sulfate 90 mcg/actuation HFA aerosol inhaler 2 puff inhalation QID PRN (Reason: shortness of breath or wheezing) Qty: 6.7 0RF (DME) Aerochamber MV Spacer See Rx Instructions .Route Qty: 1 0RF Rx Instructions: As directed multivitamin Tablet 1 tablet PO BID Rx Instructions: with food omeprazole 20 mg capsule,delayed release(DR/EC) 20 mg PO BID omega-3 fatty acids 500 mg capsule 500 mg PO QPM hydrochlorothiazide 25 mg tablet 25 mg PO DAILY Qty: 90 1RF montelukast 10 mg tablet 10 mg PO .Evening Qty: 90 1RF niacin 500 mg Tablet Extended Release 500 mg PO QAM lisinopril 40 mg tablet 40 mg PO DAILY fluticasone propionate [Flonase Allergy Relief] 50 mcg/actuation spray,suspension 1 spray intranasal BID PRN (Reason: allergies) Rx Instructions: administer into each nostril fenofibrate nanocrystallized 145 mg tablet 145 mg PO QPM Date of admission: 11/22/22 01:24 Primary Care Provider: Nba Vizcarra Admitting Provider: Heavenly German Attending physician on admission: Heavenly German Condition: Stable
--- NOTE | 2022-11-22 12:39 | PM.DS ---
DS: Admitting Diagnosis Discharge Date Today Admitting Diagnosis Chest pain DS: Discharge Diagnosis Discharge Diagnosis (1) Atypical chest pain: Code(s): R07.89 - Other chest pain Status: Acute (2) Hypertension: Qualifiers: Hypertension type: primary hypertension Qualified Code(s): I10 - Essential (primary) hypertension Code(s): I10 - Essential (primary) hypertension Status: Acute (3) Hypertriglyceridemia: Code(s): E78.1 - Pure hyperglyceridemia Status: Acute (4) Mixed hyperlipidemia: Code(s): E78.2 - Mixed hyperlipidemia Status: Acute DS: Summary Hospital Course Reason for hospitalization: Chest pain Hospital Course: 47 years old gentleman with history of hypertension, hyperlipidemia, obesity, present ED with a chief complaint of chest pain. Patient has been having intermittent chest pain since Wednesday, pressure-like chest pain, and patient also noticed high heart rate above 140. Patient continued evaluation, in the ED, patient was found have a negative troponins, EKG shows sinus rhythm no specific changes. chief security and safety officer shows sinus rhythm no severe cardiac arrhythmia or ischemia. Cardiologists saw and examined patient, recommended to discharge patient with schedules cardiac stress test of patient. Patient will be discharged home and continue home medications, also has been added aspirin 81 mg daily p.o., Toprol 25 mg daily p.o. I recommend patient to see primary care doctor in 1 week for follow-up, and she also needs referral to sleep study test. Hospital course is uneventful, patient is afebrile, hemodynamically stable Time Spent with Patient Time attestation: Total time spent providing and/or coordinating discharge services: DS: Data Data Completed and Pending Labs on day of discharge: Labs from last 24 hours 11/22/22 11/22/22 11/21/22 06:32 03:12 23:26 WBC 6.8 RBC 4.54 L Hgb 13.8 L Hct 41.0 L MCV 90.3 MCH 30.4 MCHC 33.7 RDW 12.8 Plt Count 210 MPV 11.4 H Immature Gran % (Auto) 0.3 Neut % (Auto) 45.3 L Lymph % (Auto) 42.6 [place] % (Auto) 9.0 H Eos % (Auto) 2.4 Baso % (Auto) 0.4 Lymph # (Auto) 2.90 [place] # (Auto) 0.6 Eos # (Auto) 0.2 Baso # (Auto) 0.0 Abs Immat Gran (auto) 0.02 Absolute Neuts (auto) 3.1 Absolute Nucleated RBC 0.0 Nucleated RBC % 0.0 PT 13.3 INR 1.0 APTT 35.9 Sodium Potassium Chloride Carbon Dioxide Anion Gap BUN Creatinine Estim Creat Clear Calc Estimated GFR Glucose Calcium Magnesium Total Bilirubin AST ALT Alkaline Phosphatase Troponin I 0.017 D < 0.012 < 0.012 NT-Pro-B Natriuret Pep Total Protein Albumin Lipase TSH 3.140 Urine Color Urine Appearance Urine pH Ur Specific [place] Urine Protein Urine Glucose (UA) Urine Ketones Ur Blood (Man) Urine Nitrate Urine Bilirubin Urine Urobilinogen Leukocyte Esterase Rfl 11/21/22 20:54 WBC 8.5 RBC 4.72 Hgb 14.4 Hct 41.8 L MCV 88.6 MCH 30.5 MCHC 34.4 RDW 12.5 Plt Count 236 MPV 11.5 H Immature Gran % (Auto) 0.2 Neut % (Auto) 56.5 Lymph % (Auto) 33.3 [place] % (Auto) 8.2 Eos % (Auto) 1.3 Baso % (Auto) 0.5 Lymph # (Auto) 2.83 [place] # (Auto) 0.7 H Eos # (Auto) 0.1 Baso # (Auto) 0.0 Abs Immat Gran (auto) 0.02 Absolute Neuts (auto) 4.8 Absolute Nucleated RBC 0.0 Nucleated RBC % 0.0 PT 13.1 INR 1.0 APTT 26.6 Sodium 134 L Potassium 3.7 Chloride 100 Carbon Dioxide 26 Anion Gap 8 BUN 18 Creatinine 1.00 Estim Creat Clear Calc 130 Estimated GFR > 60 Glucose 106 Calcium 10.2 Magnesium 1.8 Total Bilirubin 0.4 AST 42 ALT 55 H Alkaline Phosphatase 49 Troponin I < 0.012 NT-Pro-B Natriuret Pep < 20 Total Protein 8.0 Albumin 4.4 Lipase 154 TSH Urine Color Yellow Urine Appearance Clear Urine pH 5.5 Ur
== END 2022-11-22 12:47 | disposition home or self-care (01) ==
LOC: ANHED 11-22 00:46 → ANHIMU 11-22 02:28
PROVIDERS: Admitting Provider Internal Medicine; Emergency Provider Emergency Medicine; PCP Emergency Medicine; Visit Provider Hospitalist
DX: R07.89 Other chest pain (principal); R00.2 Palpitations; E78.2 Mixed hyperlipidemia; M60.9 Myositis, unspecified; T46.6X5A Adverse effect of antihyperlipidemic and antiarteriosclerotic drugs, initial encounter; I10 Essential (primary) hypertension; E66.01 Morbid (severe) obesity due to excess calories; J32.1 Chronic frontal sinusitis; R73.9 Hyperglycemia, unspecified; E88.81 Metabolic syndrome and other insulin resistance; R06.02 Shortness of breath; E55.9 Vitamin D deficiency, unspecified; M62.82 Rhabdomyolysis; Z68.41 Body mass index [BMI] 40.0-44.9, adult; Z87.891 Personal history of nicotine dependence; F10.90 Alcohol use, unspecified, uncomplicated; Z79.899 Other long term (current) drug therapy
CPT/HCPCS: 36415; 71045; 80053; 81003; 83690; 83735; 83880; 84443; 84484; 85025; 85610; 85730; 93005; 96374; 99285; A9270; G0378; J1644

== ENCOUNTER 2023-07-11 14:11 | Emergency (ER) | payer OTHER, SELFPAY ==
[2023-07-11 14:24] VITALS: BP 113/58; PULSE 90; RESP 20; TEMP 36.7; O2SAT 97
--- NOTE | 2023-07-11 14:33 | ED.URI ---
HPI - URI/Sore Throat General Chief Complaint: Upper Respiratory Infection Stated Complaint: Earache and Sinus Problems Time Seen by Provider: 07/11/23 14:49 Source: patient, RN notes reviewed and old records reviewed Mode of arrival: ambulatory Limitations: no limitations History of Present Illness HPI Narrative: 48-year-old male presents to the [facility] with earache and sinus symptoms. Patient reports that sinus symptoms started 3 days., bilateral ear pain started today. Reports taking Sudafed and ibuprofen. Patient states a week ago he had fever and body aches. Onset (ago): day(s) (3) Related Data Home Medications Medication Instructions Recorded Confirmed multivitamin 1 tablet PO BID 07/03/19 07/11/23 omeprazole 20 mg capsule,delayed 20 mg PO BID 07/03/19 07/11/23 release omega-3 fatty acids 500 mg capsule 500 mg PO QPM 11/28/19 07/11/23 niacin 500 mg tablet,extended 500 mg PO QAM 11/22/22 07/11/23 release Allergies Allergy/AdvReac Type Severity Reaction Status Date / Time simvastatin [From Zocor] AdvReac Intermediate Rhabdomyoly Verified 07/11/23 14:13 sis Sulfa (Sulfonamide AdvReac Mild Rash Verified 07/11/23 14:13 Antibiotics) Review of Systems Review of Systems: All systems reviewed & are unremarkable except as noted in HPI and below Constitutional: Constitutional: Reports no additional constitutional complaints Eyes: Eyes: Reports no additional eye complaints ENT: Reports as per HPI, Reports otalgia and Reports nasal congestion Cardiovascular: Cardiovascular: Reports no additional cardiovascular complaints, Denies chest pain and Denies dyspnea Respiratory: Respiratory: Reports no additional respiratory complaints, Denies chest congestion, Denies cough and Denies dyspnea Gastrointestinal: Gastrointestinal: Reports no additional gastrointestinal complaints, Denies abdominal pain, Denies nausea and Denies vomiting Musculoskeletal: Musculoskeletal: Reports no additional musculoskeletal complaints Integumentary/Breasts: Skin/Breast: Reports system reviewed and no additional complaints, except as docu Neurologic: Reports system reviewed and no additional complaints, except as documented Psychiatric: Psychiatric: Reports no additional psychiatric complaints Allergic/Immunologic: Allergic/Immunologic: Reports no additional allergic/immunologic complaints PMFSH Past Medical History Medical History Chronic frontal sinusitis Elevated CPK When taking simvastatin several years ago, patient reports 4 times normal Hyperglycemia Hypertension Metabolic syndrome Mixed hyperlipidemia Statin-induced myositis 2009: Patient reports CPK went 4 times normal, muscle aches and cramps, taking low-dose simvastatin Ureterolithiasis Vasectomy evaluation Vitamin D deficiency Surgical History Surgical History No history of previous surgery Family History Family History Mother Patient's mother is in good health Father Patient's father is in good health Social History Social History Social History: Code status: Full code Surrogate decision maker: Smoking packs per day: 1.5 Smoking cigarettes per day: 30.0 Years smoked: 7 Smoking pack-years: 10.50 Smoking status: Former smoker Tobacco type: cigarettes Smoking end date: 05/17/97 Alcohol intake: current Alcohol use details: He drinks alcohol about once a month and in moderation. Substance use: never Other substance usage details: social alcohol use Current Housing: Decline to Answer Concerned About Future Housing: Decline to Answer Difficulty Paying Gas/Electric Bills: Decline to Answer Difficulty Paying for Meds: Decline to Answer Currently Unemployed: Decline to Answer Education: D
== END 2023-07-11 15:33 | disposition home or self-care (01) ==
PROVIDERS: Emergency Provider Nurse Practitioner; PCP Emergency Medicine
DX: J32.9 Chronic sinusitis, unspecified (principal); Z20.822 Contact with and (suspected) exposure to COVID-19; Z87.891 Personal history of nicotine dependence; I10 Essential (primary) hypertension; E78.2 Mixed hyperlipidemia; E88.810 Metabolic syndrome
CPT/HCPCS: 87426; 87804; 99213; G0463